=== PATIENT | male | born 1990 | race African-American/Black ===

== ENCOUNTER 2023-11-25 15:30 | Emergency (ER) | payer MEDICAID, OTHER ==
[~2023-11-25] VITALS: Ht 180.3 cm; Wt 113.0 kg
[2023-11-25 15:50] VITALS: BP 162/102; PULSE 87; RESP 16; TEMP 98.2; O2SAT 100
[2023-11-25] MEDS: KETOROLAC 60MG/2ML VIAL IM ONE (16:50)
[2023-11-25] MEDS: LIDOCAINE HCL 1% 20ML VIAL (Pyxis) INJ INFIL ONE (17:26)
[2023-11-25] MEDS: POVIDONE-IODINE 10% TOPICAL SOLN 240ML TOP ONE (17:26)
[2023-11-25] MEDS ORDERED: IBUP-2029 MT (20:12)
== END 2023-11-25 20:28 | disposition home or self-care (01) ==
LOC: ER 15:30
DX: M79.672 Pain in left foot (principal); M79.89 Other specified soft tissue disorders; J45.909 Unspecified asthma, uncomplicated
CPT/HCPCS: 73630; 73660; 10060; 96372; 99284; J1885; J3490; Z7610 ×4